=== PATIENT | female | born 1995 | race African-American/Black ===

== ENCOUNTER 2017-10-17 15:43 | Emergency (ER) | payer OTHER ==
[~2017-10-17] VITALS: Ht 167.6 cm; Wt 84.8 kg
[~2017-10-17 15:43] MED LIST: AMOX1TAB12 PO; CONEX TABLET1 EACH PO; DICLOFENAC POTA50 MG PO; KETO10TA2 PO; MOTRIN800 MG PO; NASONEX17 GM NASAL; ORPH100T PO; OSEL75CA PO; PEPCID40 MG PO; PHENERGAN25 MG PO; PROTONIX40 MG PO; TUSSI PRES-B L120 M1 PO; ULTRACET PO
[2017-10-17] MEDS ORDERED: PRENATABS RX T1 EACH (16:20)
== END 2017-10-17 20:40 | disposition home or self-care (01) ==
LOC: ER 15:43
DX: Z34.01 Encounter for supervision of normal first pregnancy, first trimester (principal); O34.81 Maternal care for other abnormalities of pelvic organs, first trimester; R10.2 Pelvic and perineal pain

== ENCOUNTER → 2017-11-20 | Emergency (ER) | payer OTHER ==
[~2017-11-20] VITALS: Ht 167.6 cm; Wt 83.5 kg
[~2017-11-20] MED LIST changes: +PRENATABS RX T1 EACH
== END | disposition home or self-care (01) ==
LOC: ER 16:01
DX: O26.851 Spotting complicating pregnancy, first trimester (principal); Z34.01 Encounter for supervision of normal first pregnancy, first trimester